=== PATIENT | female | born 1980 | race Two or more races ===

== ENCOUNTER 2020-12-05 05:06 | Emergency (ER) | payer OTHER ==
[~2020-12-05] VITALS: Ht 157.5 cm; Wt 100.0 kg
[2020-12-05 05:26] VITALS: BP 133/85
--- NOTE | 2020-12-05 05:29 | NUR ---
JAYE FROM [facility] FOR UNABLE TO CARE FOR SELF AND SI COMMENTS. PT ON LEGAL HOLD. PER REPORT PT WAS STATING SHE WANTED TO SLIT HER WRISTS. CURRENTLY PT IS DENYING SI AND STATING "MY MOM AND MY EX HAVE BOTH KILLED THEMSELVES AND I DONT WANT TO KILL MYSELF CAUSE IT HURTS FAMILY AND ITS REALLY SELFISH". PT ADMITS TO DRINKING SINCE FLYING [place] AT 1999 AND HAS STRONG ETOH ODOR. PT HERE VISITNG FROM [place] AND PLANS TO LEAVE MONDAY. PT DENIES DRUG USE AND IS NOT IN CUSTODY. PT STRIPPED OF ALL CLOTHING AND ALL PERSONAL BELONGINGS PLACED IN BAG AND SECURED IN LOCKER. SI PRECAUTIONS IN PLACE AND SITTER AT DOORWAY.
--- NOTE | 2020-12-05 05:34 | NUR ---
PT UP TO RESTROOM, GIVEN UA CUP. PT USED RESTROOM AND FLUSHED TOILET AND THREW AWAY UA CUP AND STATED "MY URINE IS CLEAR SO YOU DON'T NEED IT".
--- NOTE | 2020-12-05 06:24 | NUR ---
PT ABLE TO CALL FRIEND KOFFI WHO IS WITH HER VISITING, KOFFI ABLE TO COME DOWN AND PICK PATIENT UP AND TAKE BACK TO HOTEL. RN SPOKE TO KOFFI VIA PHONE AND CONFIRMED SAFE DISCHARGE.
--- NOTE | 2020-12-05 06:40 | NUR ---
FRIEND HERE TO WRECKING SUPERVISOR. PT WITH STEADY GAIT TO DC DESK. ORIENTED X4. LEFT WITH ALL PERSONAL BELONGINGS INCLUDING CELL PHONE.
== END 2020-12-05 07:00 | disposition home or self-care (01) ==
LOC: ED 05:11
DX: R45.851 Suicidal ideations (principal); F10.120 Alcohol abuse with intoxication, uncomplicated; Y90.9 Presence of alcohol in blood, level not specified
CPT/HCPCS: 99283